=== PATIENT | male | born 1960 ===

== ENCOUNTER 2024-04-10 16:23 | Inpatient (IN) | payer MEDICARE, MEDICAID ==
[~2024-04-10] VITALS: Ht 175.3 cm; Wt 112.0 kg
[2024-04-10 19:18] LABS: BASOPHILS % (AUTO) 0.8 % (0.0-2.0); HEMATOCRIT 38.1 % (41-53); HEMOGLOBIN 13.1 g/dL (13.5-17.5); LYMPHOCYTES # (AUTO) 2.2 K/uL (1.0-4.8); LYMPHOCYTES % (AUTO) 21.4 % (22.0-44.0); MEAN CORPUSCULAR HEMOGLOBIN 30.1 pg (26.0-34.0); MEAN CORPUSCULAR HGB CONC 34.4 G/dL (31.0-37.0); MEAN CORPUSCULAR VOLUME 88 fL (80-100); MONOCYTES # (AUTO) 1.2 K/uL (0.1-1.0); MONOCYTES % (AUTO) 11.4 % (2.0-9.0); NEUTROPHILS # (AUTO) 6.9 K/uL (1.8-7.7); NEUTROPHILS % (AUTO) 65.4 % (40.0-70.0); PLATELET COUNT (AUTO) 193 K/uL (150-450); RED BLOOD CELL COUNT(AUTO) 4.35 MIL/uL (4.50-5.90); RED CELL DISTRIBUTION WIDTH 13.5 % (11.5-14.5); WHITE BLOOD COUNT (AUTO) 10.5 K/uL (4.5-11.0)
[2024-04-10] MEDS: ACETAMINOPHEN 500 MG TABLET PO ONE (19:24)
[2024-04-10 19:31] LABS: ALCOHOL, BLOOD (SERUM) < 3 mg/dL (0-10)
[2024-04-10 19:32] LABS: ANION GAP 6 mmol/L (8-16); CALCIUM, TOTAL 9.1 mg/dL (8.8-10.5); CARBON DIOXIDE 32 mmol/L (22-29); CHLORIDE 104 mmol/L (98-107); GLOMERULAR FILTR. RATE CALC > 60 mL/min (>60); GLUCOSE,RANDOM 96 mg/dL (70-110); POTASSIUM 3.8 mmol/L (3.5-5.1); SODIUM SERUM 142 mmol/L (136-145); UREA NITROGEN, BLOOD 16 mg/dL (7-18)
[2024-04-10 19:37] LABS: VALPROIC ACID 51 mcg/mL (50-100)
[2024-04-10] MEDS: TraZODone HCL 50 MG TABLET PO ONE (21:49)
[2024-04-10] MEDS: DIVALPROEX SODIUM 500 MG ER TABLET PO ONE (21:49)
[2024-04-11 00:38] LABS: COVID AG,FIA SOURCE NASAL SWAB
[2024-04-11 01:07] LABS: SARS-COV2 (COVID) ANTIGEN,FIA Negative (Negative)
[2024-04-11] MEDS ORDERED: LORazepam 2 MG TABLET PO PRN (03:30)
[2024-04-11] MEDS ORDERED: ZOLPIDEM TARTRATE 10 MG TABLET PO PRN (03:30)
[2024-04-11] MEDS ORDERED: HALOPERIDOL 5 MG TABLET PO PRN (03:30)
[2024-04-11 04:38] VITALS: BP 106/63; PULSE 63; RESP 18; TEMP 97.5
[2024-04-11 08:36] VITALS: RESP 18
[2024-04-11 08:46] LABS: HEMOGLOBIN A1C 5.5 % (3.8-5.6)
[2024-04-11 08:51] LABS: CHOL/HDL RATIO 2.9 (4.2-7.3); FREE T4 (FREE THYROXINE) 0.96 ng/dL (0.76-1.46); THYROID STIMULATING HORMONE 5.56 uIU/mL (0.36-3.74)
[2024-04-11] MEDS: BENZTROPINE MESYLATE 2 MG TABLET PO SCH (09:21)
[2024-04-11] MEDS: DIVALPROEX SODIUM 500 MG ER TABLET PO SCH ×2 (09:21→20:33)
[2024-04-11 12:35] VITALS: BP 146/95; PULSE 67; RESP 20; TEMP 96.6; O2SAT 93
[2024-04-11 20:12] VITALS: BP 101/66; PULSE 84; RESP 20; TEMP 97.3
[2024-04-11] MEDS: LITHIUM CARBONATE 600 MG CAPSULE PO SCH (20:33)
[2024-04-11] MEDS: TraZODone HCL 150 MG TABLET PO SCH (20:34)
[2024-04-11] MEDS: ATORVASTATIN CALCIUM 20 MG TABLET PO SCH (20:34)
[2024-04-11] MEDS: OLANZapine 10 MG RAPDIS TABLET PO SCH (20:34)
[2024-04-12] MEDS: LEVOTHYROXINE SODIUM 100 MCG TABLET PO SCH (06:17)
[2024-04-12] MEDS: EZETIMIBE 10 MG TABLET PO SCH (09:03)
[2024-04-12] MEDS: METOPROLOL TARTRATE 50 MG TABLET PO SCH (09:03)
[2024-04-12 16:18] VITALS: BP 112/69; PULSE 73; RESP 19; TEMP 97.6
[2024-04-12 22:10] VITALS: BP 116/67; PULSE 66; TEMP 98.1; O2SAT 98
[2024-04-13 09:00] VITALS: BP 119/69; PULSE 81; RESP 18; TEMP 97.5; O2SAT 97
[2024-04-13 20:12] VITALS: BP 114/69; PULSE 68; TEMP 97.2; O2SAT 93
[2024-04-14 08:22] LABS: LITHIUM 0.57 mmol/L (0.60-1.20)
[2024-04-14 08:23] VITALS: BP 118/69; PULSE 85; RESP 18; TEMP 98.6; O2SAT 97
[2024-04-14 20:15] VITALS: BP 111/54; PULSE 66; RESP 16; TEMP 99; O2SAT 96
[2024-04-15 08:06] VITALS: BP 16/72; PULSE 75; RESP 18; TEMP 97.6; O2SAT 95
[2024-04-15 09:59] LABS: APPEARANCE,URINE CLEAR (CLEAR); BILIRUBIN,URINE NEGATIVE (NEGATIVE); COLOR,URINE LIGHT YELLOW (YELLOW); GLUCOSE, URINE (UA) NEGATIVE (NEGATIVE); KETONES,URINE NEGATIVE (NEGATIVE); LEUKOCYTE ESTERASE ,URINE NEGATIVE (NEGATIVE); NITRATE,URINE NEGATIVE (NEGATIVE); OCCULT BLOOD,URINE NEGATIVE (NEGATIVE); PH,URINE 6.5 (5.0-8.0); PH,URINE DRUG SCREEN 6.5 (5.0-8.0); PROTEIN,URINE NEGATIVE (NEGATIVE); UROBILINOGEN,URINE <=1.0 mg/dL (<=1.0)
[2024-04-15 10:07] LABS: ALCOHOL, URINE DRUG SCREEN NEGATIVE (NEGATIVE); AMPHET/METH SCREEN,URINE NEGATIVE (NEGATIVE); BARBITURATE SCREEN, URINE NEGATIVE (NEGATIVE); BENZODIAZEPINES SCREEN,URINE NEGATIVE (NEGATIVE); CANNABINOID SCREEN,URINE NEGATIVE (NEGATIVE); COCAINE SCREEN,URINE NEGATIVE (NEGATIVE); METHADONE SCREEN, URINE NEGATIVE (NEGATIVE); OPIATE SCREEN,URINE NEGATIVE (NEGATIVE); PHENCYCLIDINE SCREEN,URINE NEGATIVE (NEGATIVE)
[2024-04-15 10:36] LABS: BACTERIA,URINE Rare /HPF (None Seen); RBC,URINE 0-2 /HPF (0-2); WBC,URINE 0-2 /HPF (0-5)
[2024-04-15 10:37] LABS: SQUAMOUS EPITHELIAL CELL,UR Rare /LPF (None Seen)
[2024-04-15 20:32] VITALS: BP 109/65; PULSE 63; RESP 18; TEMP 97.8; O2SAT 97
[2024-04-16 17:03] VITALS: BP 113/71; PULSE 88; RESP 18; TEMP 98.3; O2SAT 95
[2024-04-16 20:33] VITALS: BP 129/77; PULSE 67; RESP 18; TEMP 97.6; O2SAT 95
[2024-04-17 12:44] VITALS: BP 119/60; PULSE 71; RESP 18; TEMP 97.6; O2SAT 97
[2024-04-17 20:31] VITALS: BP 109/68; PULSE 74; RESP 16; TEMP 98.4; O2SAT 95
[2024-04-18 08:12] VITALS: BP 116/70; PULSE 91; RESP 18; TEMP 97.9; O2SAT 96
[2024-04-18 22:24] VITALS: BP 110/62; PULSE 72; RESP 16; TEMP 96.2; O2SAT 96
[2024-04-19 08:27] VITALS: BP 123/69; PULSE 82; RESP 18; TEMP 97.3; O2SAT 94
[2024-04-19 20:09] VITALS: BP 121/77; PULSE 79; RESP 20; TEMP 97.7; O2SAT 98
[2024-04-20 08:02] VITALS: BP 138/71; PULSE 108; RESP 16; TEMP 97.4; O2SAT 95
[2024-04-20] MEDS ORDERED: TRAZ150T80 PO (14:53)
[2024-04-20] MEDS ORDERED: LITH600C5 PO (14:53)
[2024-04-20] MEDS ORDERED: DIVA-153 PO ×2 (14:54→14:56)
[2024-04-20] MEDS ORDERED: OLAN10TA26 PO (14:54)
[2024-04-20] MEDS ORDERED: BENZ2TAB84 PO (14:55)
[2024-04-20] MEDS ORDERED: METO50 PO (15:04)
[2024-04-20] MEDS ORDERED: EZET10TA57 PO (15:04)
[2024-04-20] MEDS ORDERED: LEVO100 PO (15:06)
[2024-04-20] MEDS ORDERED: ATOR20TA PO (15:07)
== END 2024-04-20 17:55 | DRG 885 ==
LOC: EMS 18:05 → B2X 04-11 03:28
PROVIDERS: ADMIT Psychiatry & Neurology Child & Adolescent Psychiatry; ATTEND Psychiatry & Neurology Child & Adolescent Psychiatry
PROC: GZ52ZZZ Individual Psychotherapy, Cognitive (ICD-10-PCS; 2024-04-12)
PROC: GZHZZZZ Group Psychotherapy (ICD-10-PCS; principal; 2024-04-14)
DX: F20.0 Paranoid schizophrenia (principal); D64.9 Anemia, unspecified; E03.9 Hypothyroidism, unspecified; I10 Essential (primary) hypertension; F99 Mental disorder, not otherwise specified; F31.9 Bipolar disorder, unspecified; Z20.822 Contact with and (suspected) exposure to COVID-19; E78.00 Pure hypercholesterolemia, unspecified
CPT/HCPCS: 80048; 80061; 80164; 80178; 80307; 81001; 83036; 84439; 84443; 85025; 99285; G0480